=== PATIENT | female | born 1960 | race Two or more races ===

== ENCOUNTER 2018-01-05 15:35 | Emergency (ER) | payer OTHER ==
[~2018-01-05] VITALS: Ht 154.9 cm; Wt 83.9 kg
[~2018-01-05 15:35] MED LIST: CATAFLAM50 MG; CRESTOR20 MG; EFFEXOR XR150 MG; NORFLEX100MG; ORPH100T
== END 2018-01-05 22:42 | disposition home or self-care (01) ==
LOC: ER 15:35
DX: R42 Dizziness and giddiness (principal); K57.92 Diverticulitis of intestine, part unspecified, without perforation or abscess without bleeding

== ENCOUNTER 2018-05-17 11:04 | Outpatient (CLI) | payer OTHER | END 2018-05-17 11:10 | disposition home or self-care (01) | LOC: EKG 11:04 | DX: K57.32 Diverticulitis of large intestine without perforation or abscess without bleeding (principal); Z01.810 Encounter for preprocedural cardiovascular examination; R10.32 Left lower quadrant pain ==

== ENCOUNTER 2018-06-01 12:15 | Inpatient (IN) | payer OTHER ==
[~2018-06-01] VITALS: Ht 154.9 cm; Wt 84.4 kg
[2018-06-01] MEDS ORDERED: NORVASC5 MG PO (13:37)
[2018-06-11] MEDS ORDERED: OMEPRAZOLE20 M1 PO (16:18)
[2018-06-11] MEDS ORDERED: INTESTINEX680 M1 PO (16:18)
[2018-06-11] MEDS ORDERED: PERCOCET 5-3251 EACH PO (16:18)
== END 2018-06-11 16:44 | disposition home or self-care (01) | DRG 331 ==
LOC: O/R 06-08 05:23 → SURG 06-08 11:00 → SURH 06-08 11:45 → SURG 06-11 16:44
PROVIDERS: Surgery
PROC: 0DJD8ZZ Inspection of Lower Intestinal Tract, Via Natural or Artificial Opening Endoscopic (ICD-10-PCS; 2018-06-08)
PROC: 0DTN4ZZ Resection of Sigmoid Colon, Percutaneous Endoscopic Approach (ICD-10-PCS; principal; 2018-06-08 11:45)
DX: K57.32 Diverticulitis of large intestine without perforation or abscess without bleeding (principal); I10 Essential (primary) hypertension; E78.49 Other hyperlipidemia; M79.7 Fibromyalgia; J45.998 Other asthma; Z88.0 Allergy status to penicillin

== ENCOUNTER 2018-06-30 10:39 | Emergency (ER) | payer OTHER ==
[~2018-06-30] VITALS: Ht 154.9 cm; Wt 71.7 kg
[~2018-06-30 10:39] MED LIST changes: +INTESTINEX680 M1 PO; +NORVASC5 MG PO; +OMEPRAZOLE20 M1 PO; +PERCOCET 5-3251 EACH PO
[2018-06-30] MEDS ORDERED: PROTONIX20 MG (11:07)
[2018-06-30] MEDS ORDERED: PEPCID20 MG PO (14:06)
[2018-06-30] MEDS ORDERED: PHENERGAN25 MG PO (14:09)
== END 2018-06-30 14:14 | disposition home or self-care (01) ==
LOC: ER 10:39
DX: K29.00 Acute gastritis without bleeding (principal)

== ENCOUNTER 2019-05-05 07:44 | Outpatient (CLI) | payer OTHER ==
[~2019-05-05 07:44] MED LIST changes: +PEPCID20 MG PO; +PHENERGAN25 MG PO; +PROTONIX20 MG
== END 2019-05-05 07:54 | disposition home or self-care (01) ==
LOC: LAB 07:44
DX: K57.32 Diverticulitis of large intestine without perforation or abscess without bleeding (principal); R10.32 Left lower quadrant pain

== ENCOUNTER 2019-05-09 05:55 | Day surgery (SDC) | payer OTHER | END 2019-05-09 09:30 | disposition home or self-care (01) | LOC: AMB-ENDOS 05:55 | DX: K57.32 Diverticulitis of large intestine without perforation or abscess without bleeding (principal) ==

== ENCOUNTER → 2021-05-20 | Outpatient (CLI) | payer OTHER | END | disposition home or self-care (01) | LOC: SONOGRAMA 10:19 | PROVIDERS: ATTEND Pathology Anatomic Pathology & Clinical Pathology | DX: D34 Benign neoplasm of thyroid gland (principal); E04.8 Other specified nontoxic goiter ==

== ENCOUNTER → 2021-05-23 | Outpatient (CLI) | payer OTHER | END | disposition home or self-care (01) | LOC: NUCLEAR 06:00 | PROVIDERS: ATTEND Internal Medicine | DX: I50.1 Left ventricular failure, unspecified (principal); I51.9 Heart disease, unspecified; I25.9 Chronic ischemic heart disease, unspecified | CPT/HCPCS: 78452; 93017; A9500 ==

== ENCOUNTER 2021-11-30 12:21 | Emergency (ER) | payer OTHER ==
[~2021-11-30] VITALS: Ht 154.9 cm; Wt 81.6 kg
[2021-11-30] MEDS ORDERED: SINGULAIR 10MG10 MG PO (12:38)
[2021-11-30] MEDS ORDERED: KETO10TA2 PO (15:17)
[2021-11-30] MEDS ORDERED: CYCLOBENZAPRINE10 MG PO (15:17)
== END 2021-11-30 15:32 | disposition home or self-care (01) ==
LOC: ER 12:21
DX: S80.02XA Contusion of left knee, initial encounter (principal); S30.0XXA Contusion of lower back and pelvis, initial encounter; W01.0XXA Fall on same level from slipping, tripping and stumbling without subsequent striking against object, initial encounter; Y93.89 Activity, other specified; Y92.018 Other place in single-family (private) house as the place of occurrence of the external cause; Z88.0 Allergy status to penicillin; I10 Essential (primary) hypertension; J45.909 Unspecified asthma, uncomplicated

== ENCOUNTER → 2024-11-29 | Emergency (ER) | payer OTHER ==
[~2024-11-29] VITALS: Ht 152.4 cm; Wt 76.2 kg
[~2024-11-29] MED LIST changes: +CYCLOBENZAPRINE10 MG PO; +KETO10TA2 PO; +SINGULAIR 10MG10 MG PO
== END | disposition left against medical advice (07) ==
LOC: ER 13:52
DX: Z53.21 Procedure and treatment not carried out due to patient leaving prior to being seen by health care provider (principal)